=== PATIENT | female | born 1970 | race Caucasian/White ===

== ENCOUNTER → 2016-11-06 | Outpatient (REF) | payer OTHER ==
[~2016-11-06] MED LIST: ACET50TA PO; DAYQUIL PO; ESTR0.07 TD; FLUTISP; IBUP80TA PO; [UNRECOGNIZED DRUG - OTHER] TOP
[2016-11-06 14:20] LABS: BASO % 0.4 % (0.0-1.0); EOS # 0.1 K/mm3 (0.0-0.50); EOS % 1.4 % (0.0-3.0); LARGE UNSTAINED CELL # 0.2 K/mm3 (0.0-0.4); LARGE UNSTAINED CELL % 2.7 % (0.0-4.0); LYMPH # 1.3 K/mm3 (1.5-4.5); LYMPH % 22.2 % (24.0-44.0); MEAN CORPUSCULAR HEMOGLOBIN 31.2 pg (27.0-33.0); MEAN CORPUSCULAR HGB CONC 32.4 g/dl (32.0-36.5); MEAN CORPUSCULAR VOLUME 96.1 fl (80.0-96.0); MONO # 0.3 K/mm3 (0.0-0.8); MONO % 5.2 % (0.0-5.0); PLATELET COUNT, AUTOMATED 261 k/mm3 (150-450); RED CELL DISTRIBUTION WIDTH 12.7 % (11.5-14.5); WHITE BLOOD COUNT 5.8 K/mm3 (4.0-10.0)
[2016-11-06 14:24] LABS: CHOLESTEROL LEVEL 198 MG/DL (<200); FREE T4 0.96 NG/DL (0.76-1.46); TRIGLYCERIDES LEVEL 85 MG/DL (<150)
[2016-11-06 15:39] LABS: ALBUMIN 3.8 GM/DL (3.2-5.2); ALBUMIN/GLOBULIN RATIO 1.12 (1.00-1.93); ALKALINE PHOSPHATASE 79 U/L (45-117); ALT/SGPT 22 U/L (12-78); ANION GAP 6 MEQ/L (8-16); AST/SGOT 19 U/L (15-37); BILIRUBIN,TOTAL 0.4 MG/DL (0.2-1.0); BLOOD UREA NITROGEN 11 MG/DL (7-18); CALCIUM LEVEL 8.6 MG/DL (8.5-10.1); CARBON DIOXIDE LEVEL 30 MEQ/L (21-32); CHLORIDE LEVEL 107 MEQ/L (98-107); CREATININE FOR GFR 0.59 MG/DL (0.55-1.02); GLOMERULAR FILTRATION RATE > 60.0 (>58); GLUCOSE, FASTING 85 MG/DL (70-105); SODIUM LEVEL 143 MEQ/L (136-145); TOTAL PROTEIN 7.2 GM/DL (6.4-8.2)
== END ==
LOC: M LABSMT 13:36
PROVIDERS: ATTEND Family Medicine
DX: R53.83 Other fatigue (principal); Z13.220 Encounter for screening for lipoid disorders; Z13.0 Encounter for screening for diseases of the blood and blood-forming organs and certain disorders involving the immune mechanism

== ENCOUNTER → 2017-04-16 | Outpatient (CLI) | payer OTHER ==
[2017-04-19 00:07] LABS: ANTI-SACCHAROMYCES CEREV. IgA <20.0 Units (0.0-24.9); ANTI-SACCHAROMYCES CEREV. IgG 27.6 Units (0.0-24.9); ENDOMYSIAL ABY IgA Negative (Negative); TISSUE TRANSGLUTAMINASE IgG <2 U/mL (0-5)
== END ==
LOC: M SMT 10:19
PROVIDERS: ATTEND Internal Medicine Gastroenterology
DX: K52.9 Noninfective gastroenteritis and colitis, unspecified (principal)

== ENCOUNTER → 2017-04-25 | Outpatient (REF) | payer OTHER | LOC: M LAB REF 09:31 | PROVIDERS: ATTEND Internal Medicine Gastroenterology | DX: K50.90 Crohn's disease, unspecified, without complications (principal); R19.7 Diarrhea, unspecified; R10.84 Generalized abdominal pain ==

== ENCOUNTER → 2017-04-27 | Outpatient (CLI) | payer OTHER ==
[~2017-04-27] MED LIST changes: +E-Z-PAQUE 96% w/w SUSP 176GM BTL As Ordered ONE
--- NOTE | 2017-04-27 15:41 | REP ---
Small bowel follow-through The procedure was performed under the direct supervision of Dr. Montoya. The images were reviewed with Dr. Montoya. The gripper attacher film shows no organomegaly or pathological masses. The intestinal gas pattern is nonspecific. Liquid barium was administered and the barium column was followed through the small bowel to the level of the terminal ileum. Small bowel transit time is approximately 30 minutes . During fluoroscopy gentle palpation shows all loops are freely movable and pliable. There are no fixed or angulated loops. The small bowel mucosal pattern is normal in course and caliber. There is no transition to suggest a partial small bowel obstruction. Spot filming of the terminal ileum shows it to be unremarkable. Impression: Small bowel follow-through examination within normal limits. 48 seconds of fluoro time was utilized for this procedure. Reviewed by SANCHEZ Rubio 04/27/2017 02:03 PSigned by Enmanuel Montoya MD 04/27/2017 03:32 P
== END ==
LOC: M RAD 08:29
PROVIDERS: ATTEND Internal Medicine Gastroenterology
DX: K51.913 Ulcerative colitis, unspecified with fistula (principal); K52.9 Noninfective gastroenteritis and colitis, unspecified; R10.84 Generalized abdominal pain

== ENCOUNTER → 2017-05-28 | Outpatient (CLI) | payer OTHER ==
[~2017-05-28] MED LIST changes: -E-Z-PAQUE 96% w/w SUSP 176GM BTL As Ordered ONE
--- NOTE | 2017-05-28 09:45 | REPMRS ---
Patient History The patient states she had a clinical breast exam in 05/2017. Patient is postmenopausal. Family history of breast cancer in paternal aunt under age 50. Taking estrogen for 7 years. Digital Woman Screen Mammo: May 28, 2017 - Exam #: [id number] Bilateral CC and MLO view(s) were taken. Technologist: Reina Ortiz, Technologist Prior study comparison: April 04, 2016, digital woman screen mammo performed at [facility]. December 11, 2014, right breast digital mammo diagnostic unilateral, performed at [facility]. FINDINGS: There are scattered fibroglandular densities. There is a moderate amount of residual fibroglandular tissue which is fairly symmetric. There is a bilobed appearing well-circumscribed 3.9 cm mass projecting laterally in the right breast. This was previously identified is a cyst in the November 2014. It has enlarged substantially. This is felt to merit further evaluation. There is no other interval development of dominant mass, architectural distortion, or clustered microcalcification typical of malignancy. There has been no change in the appearance of the mammogram from the prior studies. ASSESSMENT: BI-RADS/ACR category 0 mammogram, incomplete. Recommendation Ultrasound and special view mammogram of the right breast. This mammogram was interpreted with the aid of an FDA-approved computer-aided dectection system. Electronically Signed By: Nahum Lei MD 05/28/17 0945
== END ==
LOC: M WHC 08:01
PROVIDERS: ATTEND Nurse Practitioner Family
DX: Z12.31 Encounter for screening mammogram for malignant neoplasm of breast (principal)

== ENCOUNTER → 2017-05-29 | Outpatient (CLI) | payer OTHER ==
--- NOTE | 2017-05-29 12:21 | REP ---
Digital diagnostic unilateral right breast mammography with CAD and focused right breast sonography: History: Screening mammography from May 28, 2017 was BIRADS category 0 because of a significant increase in the size of a nodule which projects in the upper outer quadrant of the right breast. In November 2014, a cyst was noted in this location. Mammographic findings: Magnified focal spot compression CC, MLO and true MLO views confirm the presence of a sharply circumscribed oval mass in the upper outer quadrant of the right breast approximately 4 cm in diameter. No spiculation is seen. No microcalcification is observed. No other dominant density is seen. Sonographic findings: Right breast is scanned from 9 o'clock to 12 o'clock. A bilobed cyst is seen at 9 o'clock measuring 3.3 x 1.8 x 2.3 cm located 5.2 cm from the nipple. This is felt to correspond with the mammographic opacity and is sonographically a simple cyst. There is heterogeneous fibroglandular background echotexture. A second smaller cyst is seen at 11 o'clock measuring 0.8 cm in diameter located 3.2 cm from the nipple. Impression: BIRADS category 2 benign right breast imaging. 3.3 cm cyst identified sonographically and felt to correspond with the mammographic opacity. Annual screening mammography recommended. BI-RADS/ACR category 2 mammogram. Benign finding(s). Routine annual screening mammography (for women over age 40). This mammogram was interpreted with the aid of an FDA-approved computer-aided detection system. The patient states she had a clinical breast exam in May 2017 The patient letter being requested is M1. Signed by Perry Lei MD 05/29/2017 05:15 P
== END ==
LOC: M RAD 10:11
PROVIDERS: ATTEND Nurse Practitioner Family
DX: N63 Unspecified lump in breast (principal)
CPT/HCPCS: 76642; G0206

== ENCOUNTER → 2018-01-18 | Outpatient (CLI) | payer OTHER ==
[2018-01-18 13:35] LABS: BASO % 0.7 % (0.0-1.0); EOS # 0.1 10^3/uL (0.0-0.50); EOS % 1.5 % (0.0-3.0); HEMATOCRIT 34.5 % (36.0-47.0); HEMOGLOBIN 11.3 g/dl (12.0-15.5); IMMATURE GRANULOCYTE % 0.3 % (0-3.0); LYMPH # 1.3 10^3/uL (1.5-4.5); LYMPH % 22.6 % (24.0-44.0); MEAN CORPUSCULAR HEMOGLOBIN 31.1 pg (27.0-33.0); MEAN CORPUSCULAR HGB CONC 32.8 g/dl (32.0-36.5); MONO # 0.5 10^3/uL (0.0-0.8); MONO % 8.6 % (0.0-5.0); NEUTROPHILS # 3.9 10^3/uL (1.8-7.7); NEUTROPHILS % 66.3 % (36.0-66.0); PLATELET COUNT, AUTOMATED 259 10^3/uL (150-450); RED BLOOD COUNT 3.63 10^6/uL (4.00-5.40); RED CELL DISTRIBUTION WIDTH 14.1 % (11.5-14.5); WHITE BLOOD COUNT 5.8 10^3/uL (4.0-10.0)
[2018-01-18 13:59] LABS: TOTAL 25(OH) VITAMIN D 38.7 NG/ML (30.0-100.0)
[2018-01-18 14:06] LABS: FREE T4 0.89 NG/DL (0.76-1.46)
== END ==
LOC: M SMT 11:19
DX: R53.83 Other fatigue (principal)
CPT/HCPCS: 84443

== ENCOUNTER → 2018-02-11 | Outpatient (CLI) | payer OTHER | LOC: M SMT 10:08 | DX: R05 Cough (principal) | CPT/HCPCS: 71046 ==

== ENCOUNTER → 2018-02-14 | Outpatient (CLI) | payer OTHER ==
[~2018-02-14] MED LIST changes: -ACET50TA PO; -DAYQUIL PO; -ESTR0.07 TD; -FLUTISP; -IBUP80TA PO; +METHACHOLINE KIT (J7674) INH; -[UNRECOGNIZED DRUG - OTHER] TOP
== END ==
LOC: M CARPUL 09:50
DX: R05 Cough (principal)
CPT/HCPCS: J7674

== ENCOUNTER → 2018-10-16 | Outpatient (CLI) | payer OTHER ==
[~2018-10-16] MED LIST changes: +ACET50TA PO; +DAYQUIL PO; +ESTR0.07 TD; +FLUTISP; +IBUP80TA PO; -METHACHOLINE KIT (J7674) INH; +[UNRECOGNIZED DRUG - OTHER] TOP
[2018-10-16 16:59] LABS: BASO % 0.6 % (0.0-1.0); EOS # 0.1 10^3/uL (0.0-0.50); EOS % 0.9 % (0.0-3.0); HEMATOCRIT 33.5 % (36.0-47.0); HEMOGLOBIN 12.2 g/dl (12.0-15.5); LYMPH # 1.5 10^3/uL (1.5-4.5); LYMPH % 22.6 % (24.0-44.0); MEAN CORPUSCULAR HEMOGLOBIN 36.7 pg (27.0-33.0); MEAN CORPUSCULAR HGB CONC 36.4 g/dl (32.0-36.5); MEAN CORPUSCULAR VOLUME 100.9 fl (80.0-96.0); MONO # 0.8 10^3/uL (0.0-0.8); MONO % 11.7 % (0.0-5.0); NEUTROPHILS # 4.3 10^3/uL (1.8-7.7); NEUTROPHILS % 63.6 % (36.0-66.0); PLATELET COUNT, AUTOMATED 266 10^3/uL (150-450); RED BLOOD COUNT 3.32 10^6/uL (4.00-5.40); WHITE BLOOD COUNT 6.7 10^3/uL (4.0-10.0)
[2018-10-16 17:01] LABS: ALBUMIN 3.4 GM/DL (3.2-5.2); ALT/SGPT 18 U/L (12-78); BILIRUBIN,TOTAL 0.3 MG/DL (0.2-1.0); BLOOD UREA NITROGEN 16 MG/DL (7-18); CALCIUM LEVEL 8.5 MG/DL (8.5-10.1); CARBON DIOXIDE LEVEL 29 MEQ/L (21-32); CHLORIDE LEVEL 106 MEQ/L (98-107); CREATININE FOR GFR 0.72 MG/DL (0.55-1.30); GLOMERULAR FILTRATION RATE > 60.0 (>51); GLUCOSE, FASTING 89 MG/DL (70-100); LIPASE 136 U/L (73-393); POTASSIUM SERUM 3.3 MEQ/L (3.5-5.1); SODIUM LEVEL 142 MEQ/L (136-145); TOTAL PROTEIN 6.8 GM/DL (6.4-8.2)
== END ==
LOC: M WUC 11:49
PROVIDERS: ATTEND Physician Assistant
DX: R11.10 Vomiting, unspecified (principal)

== ENCOUNTER → 2018-12-12 | Outpatient (REF) | payer OTHER ==
[2018-12-16 14:21] LABS: HPV HYBRID CAPTURE II Negative (Negative)
== END ==
LOC: M SFHCWAGY 10:17
PROVIDERS: ATTEND Nurse Practitioner Family
DX: Z12.72 Encounter for screening for malignant neoplasm of vagina (principal)

== ENCOUNTER → 2019-03-04 | Outpatient (CLI) | payer OTHER ==
[~2019-03-04] MED LIST changes: -ACET50TA PO; +FLUT1SPR2; -FLUTISP; +MAPA500T17 PO
[2019-03-04 13:13] LABS: BASO % 0.6 % (0.0-1.0); EOS # 0.1 10^3/uL (0.0-0.50); EOS % 1.6 % (0.0-3.0); HEMATOCRIT 37.4 % (36.0-47.0); HEMOGLOBIN 11.9 g/dl (12.0-15.5); LYMPH # 1.4 10^3/uL (1.5-4.5); LYMPH % 22.4 % (24.0-44.0); MEAN CORPUSCULAR HEMOGLOBIN 30.9 pg (27.0-33.0); MEAN CORPUSCULAR HGB CONC 31.8 g/dl (32.0-36.5); MEAN CORPUSCULAR VOLUME 97.1 fl (80.0-96.0); MONO # 0.6 10^3/uL (0.0-0.8); MONO % 8.6 % (0.0-5.0); NEUTROPHILS # 4.3 10^3/uL (1.8-7.7); NEUTROPHILS % 66.3 % (36.0-66.0); PLATELET COUNT, AUTOMATED 255 10^3/uL (150-450); RED BLOOD COUNT 3.85 10^6/uL (4.00-5.40); WHITE BLOOD COUNT 6.4 10^3/uL (4.0-10.0)
[2019-03-04 13:50] LABS: ALBUMIN 3.8 GM/DL (3.2-5.2); ALT/SGPT 20 U/L (12-78); BILIRUBIN,TOTAL 0.5 MG/DL (0.2-1.0); BLOOD UREA NITROGEN 9 MG/DL (7-18); CALCIUM LEVEL 8.9 MG/DL (8.5-10.1); CARBON DIOXIDE LEVEL 30 MEQ/L (21-32); CHLORIDE LEVEL 106 MEQ/L (98-107); CHOLESTEROL LEVEL 204 MG/DL (<200); CREATININE FOR GFR 0.58 MG/DL (0.55-1.30); FREE T4 0.96 NG/DL (0.76-1.46); GLOMERULAR FILTRATION RATE > 60.0 (>51); GLUCOSE, FASTING 89 MG/DL (70-100); HDL CHOLESTEROL 68 MG/DL (>40); LDL CHOLESTEROL 113 MG/DL (<100); NON-HDL-C 136 MG/DL; POTASSIUM SERUM 4.6 MEQ/L (3.5-5.1); SODIUM LEVEL 142 MEQ/L (136-145); TRIGLYCERIDES LEVEL 113 MG/DL (<150)
[2019-03-04 13:51] LABS: TOTAL 25(OH) VITAMIN D 49.8 NG/ML (30.0-100.0)
[2019-03-04 14:41] LABS: HEMOGLOBIN A1c 5.7 %
== END ==
LOC: M SMT 09:55
PROVIDERS: ATTEND Physician Assistant
DX: Z12.39 Encounter for other screening for malignant neoplasm of breast (principal)

== ENCOUNTER → 2019-05-26 | Outpatient (CLI) | payer OTHER ==
[2019-05-26 16:02] LABS: BASO # 0.1 10^3/uL (0.0-0.2); BASO % 0.9 % (0.0-1.0); EOS # 0.1 10^3/uL (0.0-0.50); HEMATOCRIT 36.2 % (36.0-47.0); HEMOGLOBIN 11.6 g/dl (12.0-15.5); LYMPH # 1.3 10^3/uL (1.5-4.5); LYMPH % 23.7 % (24.0-44.0); MEAN CORPUSCULAR HEMOGLOBIN 31.7 pg (27.0-33.0); MEAN CORPUSCULAR VOLUME 98.9 fl (80.0-96.0); MONO # 0.5 10^3/uL (0.0-0.8); MONO % 9.4 % (0.0-5.0); NEUTROPHILS # 3.5 10^3/uL (1.8-7.7); NEUTROPHILS % 63.6 % (36.0-66.0); PLATELET COUNT, AUTOMATED 192 10^3/uL (150-450); RED BLOOD COUNT 3.66 10^6/uL (4.00-5.40); WHITE BLOOD COUNT 5.5 10^3/uL (4.0-10.0)
[2019-05-26 16:07] LABS: ALBUMIN 3.5 GM/DL (3.2-5.2); ALT/SGPT 18 U/L (12-78); BILIRUBIN,TOTAL 0.3 MG/DL (0.2-1.0); BLOOD UREA NITROGEN 11 MG/DL (7-18); CALCIUM LEVEL 8.8 MG/DL (8.5-10.1); CARBON DIOXIDE LEVEL 32 MEQ/L (21-32); CHLORIDE LEVEL 107 MEQ/L (98-107); CREATININE FOR GFR 0.63 MG/DL (0.55-1.30); GLOMERULAR FILTRATION RATE > 60.0 (>51); GLUCOSE, FASTING 82 MG/DL (70-100); POTASSIUM SERUM 4.1 MEQ/L (3.5-5.1); SODIUM LEVEL 141 MEQ/L (136-145)
[2019-05-26 16:14] LABS: VITAMIN B12 LEVEL > 2000 PG/ML (247-911)
[2019-05-26 16:15] LABS: FOLATE 17.6 NG/ML (>5.4)
[2019-05-26 16:54] LABS: HEMOGLOBIN A1c 5.5 %
== END ==
LOC: M SMT 12:59
PROVIDERS: ATTEND Physician Assistant
DX: R73.01 Impaired fasting glucose (principal); D51.3 Other dietary vitamin B12 deficiency anemia

== ENCOUNTER → 2020-03-19 | Outpatient (CLI) | payer OTHER ==
[~2020-03-19] MED LIST changes: +ISOVUE-370 76% 100ML VIAL As Ordered ONE
--- NOTE | 2020-03-19 10:20 | REP ---
CT CHEST WITH IV CONTRAST: HISTORY: Cough. Comparison chest x-ray October [address] CONTRAST DOSE: 75 mL of intravenous Isovue 370. 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 Clothing artifact is seen in the presternal soft area. There is no evidence of pleural or pericardial effusion. No infiltrate is seen. No pulmonary mass or significant pulmonary nodule is seen. There is a granulomatous calcification in the right upper lobe. No infiltrate is seen. There is no evidence of hilar or mediastinal mass or adenopathy. No adrenal lesion is seen. The visualized upper abdominal structures are unremarkable. There is a low-density homogeneous oval-shaped lesion in the right breast laterally 3.0 cm x 2.4 cm x 2.7 cm in diameter consistent with a right breast cyst. This was identified by ultrasound May. IMPRESSION: Granulomatous calcification right upper lobe. Otherwise no active disease. Right breast cyst again noted. Electronically Signed by Perry Lei MD 03/19/2020 12:48 P
== END ==
LOC: M RAD 08:49
PROVIDERS: ATTEND Physician Assistant
DX: R05 Cough (principal); N60.01 Solitary cyst of right breast; J84.10 Pulmonary fibrosis, unspecified
CPT/HCPCS: 71260; Q9967

== ENCOUNTER → 2020-09-03 | Outpatient (CLI) | payer OTHER ==
[~2020-09-03] MED LIST changes: -ISOVUE-370 76% 100ML VIAL As Ordered ONE
[2020-09-03 13:00] LABS: BASO % 0.5 % (0.0-1.0); EOS # 0.1 10^3/uL (0.0-0.5); EOS % 1.5 % (0.0-3.0); HEMATOCRIT 37.3 % (36.0-47.0); HEMOGLOBIN 11.9 g/dl (12.0-15.5); LYMPH # 1.2 10^3/uL (1.5-5.0); LYMPH % 21.2 % (24.0-44.0); MEAN CORPUSCULAR HEMOGLOBIN 31.4 pg (27.0-33.0); MEAN CORPUSCULAR HGB CONC 31.9 g/dl (32.0-36.5); MEAN CORPUSCULAR VOLUME 98.4 fl (80.0-96.0); MONO # 0.6 10^3/uL (0.0-0.8); NEUTROPHILS # 3.6 10^3/uL (1.5-8.5); NEUTROPHILS % 66.4 % (36.0-66.0); PLATELET COUNT, AUTOMATED 269 10^3/uL (150-450); RED BLOOD COUNT 3.79 10^6/uL (4.00-5.40); WHITE BLOOD COUNT 5.5 10^3/uL (4.0-10.0)
[2020-09-03 13:25] LABS: HEMOGLOBIN A1c 5.7 %
[2020-09-03 13:29] LABS: ALBUMIN 3.7 GM/DL (3.2-5.2); ALT/SGPT 27 U/L (12-78); BILIRUBIN,TOTAL 0.4 MG/DL (0.2-1.0); BLOOD UREA NITROGEN 15 MG/DL (7-18); CALCIUM LEVEL 8.9 MG/DL (8.5-10.1); CARBON DIOXIDE LEVEL 29 MEQ/L (21-32); CHLORIDE LEVEL 108 MEQ/L (98-107); CREATININE FOR GFR 0.67 MG/DL (0.55-1.30); GLOMERULAR FILTRATION RATE > 60.0 (>51); GLUCOSE, FASTING 106 MG/DL (70-100); RHEUMATOID FACTOR QUANT < 10.0 IU/ML (<15.0); SODIUM LEVEL 141 MEQ/L (136-145); TOTAL PROTEIN 6.9 GM/DL (6.4-8.2)
[2020-09-03 13:30] LABS: ERYTHROCYTE SEDIMENTATION RATE 21 mm/hr (0-30)
== END ==
LOC: M WUC 09:44
PROVIDERS: ATTEND Physician Assistant
DX: R53.83 Other fatigue (principal)

== ENCOUNTER → 2021-01-21 | Outpatient (CLI) | payer OTHER ==
--- NOTE | 2021-01-21 10:27 | REP ---
INDICATION: PAIN COMPARISON: None TECHNIQUE: Five views FINDINGS: There is minimal tricompartmental marginal osteophytosis. The compartments are symmetric and well maintained. There is no acute fracture, dislocation, or subluxation. IMPRESSION: Early degenerative changes as described above. <Electronically signed by Aditya Richards > 01/21/21 1024
== END ==
LOC: M WUC 09:50
PROVIDERS: ATTEND Physician Assistant
DX: M17.12 Unilateral primary osteoarthritis, left knee (principal)

== ENCOUNTER → 2021-07-11 | Outpatient (CLI) | payer OTHER ==
--- NOTE | 2021-07-11 20:13 | REPVR ---
PROCEDURE INFORMATION: Exam: MR Lumbar Spine Without Contrast Exam date and time: 07/11/2021 8:11 AM Age: 51 years old Clinical indication: Low back pain; Radiculopathy TECHNIQUE: Imaging protocol: Multiplanar magnetic resonance images of the lumbar spine without intravenous contrast. COMPARISON: No relevant prior studies available. FINDINGS: Vertebral body heights are maintained. No abnormal marrow signal. No cord compression. No abnormal cord signal. Conus medullaris terminates at the L1 level. Paravertebral soft tissues are unremarkable. L1-L2: No significant canal or foraminal narrowing. L2-L3: No significant canal or foraminal narrowing. L3-L4: Left foraminal disc protrusion causing mild left foraminal narrowing. No significant canal narrowing. L4-L5: Broad-based disc bulge causes mild bilateral foraminal narrowing. No significant canal narrowing. L5-S1: Left paracentral disc protrusion superimposed over broad-based disc bulge effacing the left lateral recess and compressing the traversing left S1 nerve root. Along with facet hypertrophy there is mild right and [id number] left foraminal narrowing. IMPRESSION: 1. Left paracentral disc protrusion at L5-S1 compressing the traversing left S1 nerve root. Recommend surgical consultation. 2. 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 Electronically signed by: Pascual Espana On 07/11/2021 20:13:01 PM
== END ==
LOC: M RAD 07:28
PROVIDERS: ATTEND Family Medicine
DX: M54.16 Radiculopathy, lumbar region (principal)

== ENCOUNTER → 2022-01-26 | Outpatient (CLI) | payer OTHER ==
[2022-01-26 12:46] LABS: BASO % 0.8 % (0.0-1.0); EOS # 0.1 10^3/uL (0.0-0.5); EOS % 1.6 % (0.0-3.0); HEMATOCRIT 35.1 % (36.0-47.0); HEMOGLOBIN 11.5 g/dl (12.0-15.5); LYMPH # 1.3 10^3/uL (1.5-5.0); LYMPH % 26.5 % (24.0-44.0); MEAN CORPUSCULAR HEMOGLOBIN 31.3 pg (27.0-33.0); MEAN CORPUSCULAR HGB CONC 32.8 g/dl (32.0-36.5); MEAN CORPUSCULAR VOLUME 95.6 fl (80.0-96.0); MONO # 0.4 10^3/uL (0.0-0.8); MONO % 8.7 % (2.0-8.0); NEUTROPHILS # 3.1 10^3/uL (1.5-8.5); NEUTROPHILS % 61.8 % (36.0-66.0); PLATELET COUNT, AUTOMATED 275 10^3/uL (150-450); RED BLOOD COUNT 3.67 10^6/uL (4.00-5.40); WHITE BLOOD COUNT 5.1 10^3/uL (4.0-10.0)
[2022-01-26 13:17] LABS: ALBUMIN 3.7 GM/DL (3.2-5.2); ALT/SGPT 21 U/L (12-78); BILIRUBIN,TOTAL 0.4 MG/DL (0.2-1.0); BLOOD UREA NITROGEN 12 MG/DL (7-18); CALCIUM LEVEL 9.5 MG/DL (8.5-10.1); CARBON DIOXIDE LEVEL 29 MEQ/L (21-32); CHLORIDE LEVEL 107 MEQ/L (98-107); CHOLESTEROL LEVEL 210 MG/DL (<200); CHOLESTEROL RISK RATIO 2.916 (<5); CREATININE FOR GFR 0.56 MG/DL (0.55-1.30); FERRITIN 86 NG/ML (8-252); GLOMERULAR FILTRATION RATE > 60.0 (>51); GLUCOSE, FASTING 90 MG/DL (70-100); HDL CHOLESTEROL 72 MG/DL (>40); IRON (FE) 107 UG/DL (50-170); LDL CHOLESTEROL 123 MG/DL (<100); NON-HDL-C 138 MG/DL; PERCENT SATURATION 40.7 % (13.2-45.0); POTASSIUM SERUM 4.1 MEQ/L (3.5-5.1); SODIUM LEVEL 141 MEQ/L (136-145); TOTAL IRON BINDING CAPACITY 263 UG/DL (250-450); TOTAL PROTEIN 6.9 GM/DL (6.4-8.2); TRIGLYCERIDES LEVEL 74 MG/DL (<150)
[2022-01-26 13:20] LABS: TOTAL 25(OH) VITAMIN D 58.7 NG/ML (30.0-100.0); VITAMIN B12 LEVEL 1245 PG/ML
[2022-01-26 13:21] LABS: FOLATE 21.5 NG/ML
== END ==
LOC: M WUC 09:25
PROVIDERS: ATTEND Physician Assistant
DX: D51.3 Other dietary vitamin B12 deficiency anemia (principal); K51.90 Ulcerative colitis, unspecified, without complications; Z13.220 Encounter for screening for lipoid disorders

== ENCOUNTER → 2022-09-14 | Outpatient (REF) | payer OTHER | LOC: M PLALAB 12:49 | PROVIDERS: ATTEND Nurse Practitioner Family | DX: Z12.4 Encounter for screening for malignant neoplasm of cervix (principal) ==

== ENCOUNTER → 2022-12-22 | Outpatient (CLI) | payer OTHER ==
[2022-12-22 14:47] LABS: BLOOD UREA NITROGEN 12 MG/DL (9-23); CALCIUM LEVEL 8.5 MG/DL (8.5-10.1); CARBON DIOXIDE LEVEL 31 MMOL/L (20-31); CHLORIDE LEVEL 108 MMOL/L (98-107); CREATININE FOR GFR 0.55 MG/DL (0.55-1.30); GLOMERULAR FILTRATION RATE > 60.0 (>51); GLUCOSE, FASTING 94 MG/DL (60-100); SODIUM LEVEL 142 MMOL/L (136-145)
== END ==
LOC: M RAD 11:28
PROVIDERS: ATTEND Physician Assistant
DX: I73.9 Peripheral vascular disease, unspecified (principal)

== ENCOUNTER → 2023-01-12 | Outpatient (CLI) | payer OTHER ==
[2023-01-12 15:03] LABS: CK-MB VALUE MASS < 1.0 NG/ML (<3.6)
[2023-01-12 15:07] LABS: CPK CREATINE PHOSPHOKINASE 96 U/L (34-145); MB/CK RELATIVE INDEX 1.04 (< OR =4); THYROID STIMULATING HORMONE 2.121 uIU/ML (0.55-4.78)
[2023-01-12 15:08] LABS: FREE T4 0.95 NG/DL (0.89-1.76)
== END ==
LOC: M PLALAB 09:40
PROVIDERS: ATTEND Physician Assistant
DX: R06.00 Dyspnea, unspecified (principal)

== ENCOUNTER → 2023-01-23 | Outpatient (CLI) | payer OTHER | LOC: M CARPUL 11:48 | PROVIDERS: ATTEND Physician Assistant | DX: R06.00 Dyspnea, unspecified (principal) ==

== ENCOUNTER → 2023-04-27 | Outpatient (REF) | payer OTHER ==
[2023-04-27 15:57] LABS: APPEARANCE, URINE HAZY (CLEAR); BACTERIA, URINE AUTO 1+ (NEGATIVE); BILIRUBIN, URINE AUTO NEGATIVE (NEGATIVE); BLOOD, URINE BLOOD 1+ (NEGATIVE); COLOR, URINE YELLOW (YELLOW); GLUCOSE, URINE (UA) AUTO NEGATIVE (NEGATIVE); KETONE, URINE AUTO NEGATIVE (NEGATIVE); LEUKOCYTE ESTERASE, URINE AUTO NEGATIVE (NEGATIVE); MUCUS, URINE SMALL (NEGATIVE); NITRITE, URINE AUTO NEGATIVE (NEGATIVE); PROTEIN, URINE AUTO NEGATIVE (NEGATIVE); RBC, URINE AUTO 1 /HPF (0-3); SPECIFIC GRAVITY URINE AUTO 1.015 (1.002-1.035); SQUAMOUS EPITHELIAL CELL UR AU 6 /HPF (0-6); UROBILINOGEN, URINE AUTO 0.2 mg/dL (0.0-2.0); WBC, URINE AUTO 1 /HPF (0-3)
== END ==
LOC: M LAB REF 15:22
PROVIDERS: ATTEND Physician Assistant
DX: R31.9 Hematuria, unspecified (principal)

== ENCOUNTER → 2023-06-01 | Outpatient (REF) | payer OTHER ==
[2023-06-01 14:38] LABS: BACTERIA, URINE AUTO NEGATIVE (NEGATIVE); MUCUS, URINE SMALL (NEGATIVE); RBC, URINE AUTO 2 /HPF (0-3); SQUAMOUS EPITHELIAL CELL UR AU 4 /HPF (0-6); WBC, URINE AUTO 0 /HPF (0-3)
[2023-06-01 15:04] LABS: APPEARANCE, URINE CLEAR (CLEAR); BILIRUBIN, URINE AUTO NEGATIVE (NEGATIVE); BLOOD, URINE BLOOD 1+ (NEGATIVE); COLOR, URINE YELLOW (YELLOW); GLUCOSE, URINE (UA) AUTO NEGATIVE (NEGATIVE); KETONE, URINE AUTO NEGATIVE (NEGATIVE); LEUKOCYTE ESTERASE, URINE AUTO NEGATIVE (NEGATIVE); NITRITE, URINE AUTO NEGATIVE (NEGATIVE); PROTEIN, URINE AUTO NEGATIVE (NEGATIVE); SPECIFIC GRAVITY URINE AUTO 1.016 (1.002-1.035); UROBILINOGEN, URINE AUTO 0.2 mg/dL (0.0-2.0)
== END ==
LOC: M SMT 12:49
PROVIDERS: ATTEND Physician Assistant
DX: R31.29 Other microscopic hematuria (principal)

== ENCOUNTER → 2023-07-09 | Outpatient (CLI) | payer OTHER ==
[2023-07-09 12:05] LABS: BASO % 0.7 % (0.0-1.0); EOS # 0.1 10^3/uL (0.0-0.5); EOS % 2.1 % (0.0-3.0); HEMATOCRIT 37.9 % (36.0-47.0); HEMOGLOBIN 12.3 g/dl (12.0-15.5); LYMPH # 1.2 10^3/uL (1.5-5.0); LYMPH % 19.9 % (24.0-44.0); MEAN CORPUSCULAR HEMOGLOBIN 31.4 pg (27.0-33.0); MEAN CORPUSCULAR HGB CONC 32.5 g/dl (32.0-36.5); MEAN CORPUSCULAR VOLUME 96.7 fl (80.0-96.0); MONO # 0.6 10^3/uL (0.0-0.8); MONO % 9.5 % (2.0-8.0); NEUTROPHILS # 4.1 10^3/uL (1.5-8.5); NEUTROPHILS % 67.3 % (36.0-66.0); PLATELET COUNT, AUTOMATED 265 10^3/uL (150-450); RED BLOOD COUNT 3.92 10^6/uL (4.00-5.40); WHITE BLOOD COUNT 6.1 10^3/uL (4.0-10.0)
[2023-07-09 12:17] LABS: HEMOGLOBIN A1c 5.1 % (4.0-6.0)
[2023-07-09 12:33] LABS: ALBUMIN 3.7 G/DL (3.2-5.2); ALKALINE PHOSPHATASE 93 U/L (46-116); ALT/SGPT 30 U/L (7.0-40); AST/SGOT 22 U/L (<34); BILIRUBIN,TOTAL 0.6 MG/DL (0.3-1.2); BLOOD UREA NITROGEN 14 MG/DL (9-23); CARBON DIOXIDE LEVEL 30 MMOL/L (20-31); CHLORIDE LEVEL 108 MMOL/L (98-107); CHOLESTEROL LEVEL 214 MG/DL (<200); CHOLESTEROL RISK RATIO 2.72 (<5); CREATININE FOR GFR 0.65 MG/DL (0.55-1.30); FREE T4 1.08 NG/DL (0.89-1.76); GLOMERULAR FILTRATION RATE > 60.0 (>51); GLUCOSE, FASTING 95 MG/DL (60-100); HDL CHOLESTEROL 78.4 MG/DL (>40); LDL CHOLESTEROL 119.8 MG/DL (<100); NON-HDL-C 135.6 MG/DL; POTASSIUM SERUM 4.2 MMOL/L (3.5-5.1); SODIUM LEVEL 142 MMOL/L (136-145); TOTAL PROTEIN 6.8 G/DL (5.7-8.2); TRIGLYCERIDES LEVEL 79 MG/DL (<150)
[2023-07-09 12:34] LABS: THYROID STIMULATING HORMONE 2.307 uIU/ML (0.55-4.78); TOTAL 25(OH) VITAMIN D 51.9 NG/ML (20.0-100.0)
== END ==
LOC: M WUC 09:08
PROVIDERS: ATTEND Physician Assistant
DX: Z13.220 Encounter for screening for lipoid disorders (principal); Z13.29 Encounter for screening for other suspected endocrine disorder

== ENCOUNTER → 2023-08-31 | Outpatient (CLI) | payer OTHER | LOC: M RAD 10:36 | PROVIDERS: ATTEND Physician Assistant | DX: M17.12 Unilateral primary osteoarthritis, left knee (principal); M25.462 Effusion, left knee ==

== ENCOUNTER → 2024-01-21 | Outpatient (CLI) | payer OTHER | LOC: M RAD 07:05 | PROVIDERS: ATTEND Orthopaedic Surgery | DX: M54.59 Other low back pain (principal) ==

== ENCOUNTER → 2024-01-22 | Outpatient (CLI) | payer OTHER ==
[2024-01-22 14:01] LABS: BASO % 0.4 % (0.0-1.0); EOS # 0.1 10^3/uL (0.0-0.5); EOS % 1.6 % (0.0-3.0); HEMATOCRIT 37.1 % (36.0-47.0); HEMOGLOBIN 11.9 g/dl (12.0-15.5); LYMPH # 1.3 10^3/uL (1.5-5.0); LYMPH % 23.6 % (24.0-44.0); MEAN CORPUSCULAR HEMOGLOBIN 31.4 pg (27.0-33.0); MEAN CORPUSCULAR HGB CONC 32.1 g/dl (32.0-36.5); MEAN CORPUSCULAR VOLUME 97.9 fl (80.0-96.0); MONO # 0.5 10^3/uL (0.0-0.8); MONO % 9.3 % (2.0-8.0); NEUTROPHILS # 3.5 10^3/uL (1.5-8.5); NEUTROPHILS % 64.7 % (36.0-66.0); PLATELET COUNT, AUTOMATED 220 10^3/uL (150-450); RED BLOOD COUNT 3.79 10^6/uL (4.00-5.40); WHITE BLOOD COUNT 5.5 10^3/uL (4.0-10.0)
[2024-01-22 14:05] LABS: URIC ACID 4.5 MG/DL (3.1-7.8)
[2024-01-22 14:06] LABS: C REACTIVE PROTEIN QUANTITATIV < 0.40 MG/DL (<1.0); TOTAL IRON BINDING CAPACITY 325 UG/DL (250-425)
[2024-01-22 14:07] LABS: CPK CREATINE PHOSPHOKINASE 131 U/L (34-145)
[2024-01-22 14:08] LABS: RHEUMATOID FACTOR QUANT 6.5 IU/ML (<14)
[2024-01-22 14:20] LABS: ERYTHROCYTE SEDIMENTATION RATE 22 mm/hr (0-30)
[2024-01-22 14:22] LABS: ALBUMIN 3.5 G/DL (3.2-5.2); ALKALINE PHOSPHATASE 95 U/L (46-116); ALT/SGPT 14 U/L (7.0-40); AST/SGOT 15 U/L (<34); BILIRUBIN,TOTAL 0.5 MG/DL (0.3-1.2); BLOOD UREA NITROGEN 17 MG/DL (9-23); CALCIUM LEVEL 8.8 MG/DL (8.5-10.1); CARBON DIOXIDE LEVEL 30 MMOL/L (20-31); CHLORIDE LEVEL 104 MMOL/L (98-107); CREATININE FOR GFR 0.57 MG/DL (0.55-1.30); FERRITIN 45.6 NG/ML (7.3-270.7); FOLATE 14.2 NG/ML (>5.4); FREE T4 1.01 NG/DL (0.89-1.76); GLOMERULAR FILTRATION RATE > 60.0 (>51); GLUCOSE, FASTING 100 MG/DL (60-100); SODIUM LEVEL 140 MMOL/L (136-145); THYROID STIMULATING HORMONE 1.989 uIU/ML (0.55-4.78); TOTAL 25(OH) VITAMIN D 44.7 NG/ML (20.0-100.0); TOTAL PROTEIN 6.5 G/DL (5.7-8.2); VITAMIN B12 LEVEL 1135 PG/ML (211-911)
[2024-01-22 14:26] LABS: IRON (FE) 95 UG/DL (50-170); PERCENT SATURATION 29.2 % (13.2-45.0)
== END ==
LOC: M WUC 10:10
PROVIDERS: ATTEND Physician Assistant
DX: R53.83 Other fatigue (principal)

== ENCOUNTER → 2024-06-28 | Outpatient (CLI) | payer OTHER ==
[2024-06-28 10:10] LABS: BASO % 0.5 % (0.0-1.0); EOS # 0.1 10^3/uL (0.0-0.5); EOS % 1.7 % (0.0-3.0); HEMATOCRIT 38.4 % (36.0-47.0); HEMOGLOBIN 12.7 g/dl (12.0-15.5); LYMPH # 1.3 10^3/uL (1.5-5.0); LYMPH % 22.1 % (24.0-44.0); MEAN CORPUSCULAR HGB CONC 33.1 g/dl (32.0-36.5); MEAN CORPUSCULAR VOLUME 96.7 fl (80.0-96.0); MONO # 0.6 10^3/uL (0.0-0.8); MONO % 9.8 % (2.0-8.0); NEUTROPHILS # 3.8 10^3/uL (1.5-8.5); NEUTROPHILS % 65.7 % (36.0-66.0); PLATELET COUNT, AUTOMATED 255 10^3/uL (150-450); RED BLOOD COUNT 3.97 10^6/uL (4.00-5.40); WHITE BLOOD COUNT 5.7 10^3/uL (4.0-10.0)
[2024-06-28 10:36] LABS: LIPASE 52 U/L (12-53)
[2024-06-28 10:38] LABS: ALBUMIN 3.7 G/DL (3.2-5.2); ALKALINE PHOSPHATASE 88 U/L (46-116); ALT/SGPT 13 U/L (7.0-40); AST/SGOT 9 U/L (<34); BILIRUBIN,DIRECT 0.2 MG/DL (<0.4); BILIRUBIN,TOTAL 0.6 MG/DL (0.3-1.2); BLOOD UREA NITROGEN 12 MG/DL (9-23); CALCIUM LEVEL 9.8 MG/DL (8.5-10.1); CARBON DIOXIDE LEVEL 32 MMOL/L (20-31); CHLORIDE LEVEL 107 MMOL/L (98-107); CREATININE FOR GFR 0.66 MG/DL (0.55-1.30); GLOMERULAR FILTRATION RATE > 60.0 (>51); GLUCOSE, FASTING 88 MG/DL (60-100); POTASSIUM SERUM 4.4 MMOL/L (3.5-5.1); SODIUM LEVEL 142 MMOL/L (136-145); TOTAL PROTEIN 7.1 G/DL (5.7-8.2)
== END ==
LOC: M LAB 08:58
PROVIDERS: ATTEND Physician Assistant
DX: R19.7 Diarrhea, unspecified (principal)

== ENCOUNTER → 2024-08-07 | Outpatient (CLI) | payer OTHER | LOC: M WUC 10:38 | PROVIDERS: ATTEND Internal Medicine Rheumatology | DX: M25.50 Pain in unspecified joint (principal); M54.42 Lumbago with sciatica, left side; R76.8 Other specified abnormal immunological findings in serum; K51.911 Ulcerative colitis, unspecified with rectal bleeding; R05.3 Chronic cough ==

== ENCOUNTER → 2024-08-26 | Outpatient (REF) | payer OTHER ==
[2024-08-26 12:58] LABS: BASO % 0.9 % (0.0-1.0); EOS # 0.1 10^3/uL (0.0-0.5); EOS % 2.4 % (0.0-3.0); HEMATOCRIT 35.5 % (36.0-47.0); HEMOGLOBIN 11.6 g/dl (12.0-15.5); LYMPH # 1.2 10^3/uL (1.5-5.0); LYMPH % 25.4 % (24.0-44.0); MEAN CORPUSCULAR HEMOGLOBIN 32.1 pg (27.0-33.0); MEAN CORPUSCULAR HGB CONC 32.7 g/dl (32.0-36.5); MEAN CORPUSCULAR VOLUME 98.3 fl (80.0-96.0); MONO # 0.4 10^3/uL (0.0-0.8); MONO % 8.8 % (2.0-8.0); NEUTROPHILS # 2.9 10^3/uL (1.5-8.5); NEUTROPHILS % 62.3 % (36.0-66.0); PLATELET COUNT, AUTOMATED 173 10^3/uL (150-450); RED BLOOD COUNT 3.61 10^6/uL (4.00-5.40); WHITE BLOOD COUNT 4.7 10^3/uL (4.0-10.0)
[2024-08-26 13:07] LABS: ERYTHROCYTE SEDIMENTATION RATE 14 mm/hr (0-30)
[2024-08-26 13:12] LABS: APPEARANCE, URINE HAZY (CLEAR); BACTERIA, URINE AUTO NEGATIVE (NEGATIVE); BILIRUBIN, URINE AUTO NEGATIVE (NEGATIVE); BLOOD, URINE BLOOD NEGATIVE (NEGATIVE); COLOR, URINE YELLOW (YELLOW); GLUCOSE, URINE (UA) AUTO NEGATIVE (NEGATIVE); KETONE, URINE AUTO NEGATIVE (NEGATIVE); LEUKOCYTE ESTERASE, URINE AUTO NEGATIVE (NEGATIVE); MUCUS, URINE MODERATE (NEGATIVE); NITRITE, URINE AUTO NEGATIVE (NEGATIVE); PROTEIN, URINE AUTO NEGATIVE (NEGATIVE); RBC, URINE AUTO 1 /HPF (0-3); SPECIFIC GRAVITY URINE AUTO 1.019 (1.002-1.035); SQUAMOUS EPITHELIAL CELL UR AU 9 /HPF (0-6); UROBILINOGEN, URINE AUTO 0.2 mg/dL (0.0-2.0); WBC, URINE AUTO 1 /HPF (0-3)
[2024-08-26 13:27] LABS: C REACTIVE PROTEIN QUANTITATIV < 0.40 MG/DL (<1.0)
[2024-08-26 13:28] LABS: ALBUMIN 3.4 G/DL (3.2-5.2); ALKALINE PHOSPHATASE 80 U/L (35-104); ALT/SGPT 14 U/L (7.0-40); AST/SGOT 8 U/L (<34); BILIRUBIN,TOTAL 0.5 MG/DL (0.3-1.2); BLOOD UREA NITROGEN 13 MG/DL (9-23); CARBON DIOXIDE LEVEL 30 MMOL/L (20-31); CHLORIDE LEVEL 107 MMOL/L (98-107); COMPLEMENT C4 27.7 MG/DL (12-36); CREATININE FOR GFR 0.63 MG/DL (0.55-1.30); GLOMERULAR FILTRATION RATE > 60.0 (>51); GLUCOSE, FASTING 81 MG/DL (60-100); POTASSIUM SERUM 4.2 MMOL/L (3.5-5.1); SODIUM LEVEL 142 MMOL/L (136-145); TOTAL PROTEIN 6.6 G/DL (5.7-8.2)
[2024-08-26 13:35] LABS: TOTAL PROTEIN,RANDOM URINE 10.2 MG/DL (0.0-14.0)
[2024-08-26 13:40] LABS: CREATININE,RANDOM URINE 158.6 MG/DL
== END ==
LOC: M SFHCRHEU 06:55
PROVIDERS: ATTEND Internal Medicine Rheumatology
DX: M25.50 Pain in unspecified joint (principal); M54.42 Lumbago with sciatica, left side; R76.8 Other specified abnormal immunological findings in serum; K51.911 Ulcerative colitis, unspecified with rectal bleeding; R05.3 Chronic cough

== ENCOUNTER → 2024-09-29 | Outpatient (CLI) | payer OTHER | LOC: M WUC 08:51 | PROVIDERS: ATTEND Internal Medicine Rheumatology | DX: M25.50 Pain in unspecified joint (principal); M54.42 Lumbago with sciatica, left side; R76.8 Other specified abnormal immunological findings in serum; R05.3 Chronic cough ==